=== PATIENT | female | born 2000 | race Two or more races ===

== ENCOUNTER 2024-01-03 09:36 | Outpatient (CLI) | payer OTHER | END 2024-01-03 09:37 | disposition home or self-care (01) | LOC: PRENATAL 09:36 | PROVIDERS: ATTEND Obstetrics & Gynecology Maternal & Fetal Medicine | DX: O35.3XX0 Maternal care for (suspected) damage to fetus from viral disease in mother, not applicable or unspecified (principal); O44.02 Complete placenta previa NOS or without hemorrhage, second trimester; O35.9XX0 Maternal care for (suspected) fetal abnormality and damage, unspecified, not applicable or unspecified; O26.872 Cervical shortening, second trimester; Z3A.23 23 weeks gestation of pregnancy ==

== ENCOUNTER 2024-03-07 09:37 | Outpatient (CLI) | payer OTHER | END 2024-03-07 09:38 | disposition home or self-care (01) | LOC: PRENATAL 09:37 | PROVIDERS: ATTEND Obstetrics & Gynecology Maternal & Fetal Medicine | DX: O26.849 Uterine size-date discrepancy, unspecified trimester (principal); O36.8199 Decreased fetal movements, unspecified trimester, other fetus; O99.019 Anemia complicating pregnancy, unspecified trimester; O26.859 Spotting complicating pregnancy, unspecified trimester; Z3A.32 32 weeks gestation of pregnancy ==

== ENCOUNTER 2024-03-12 19:29 | Inpatient (IN) | payer OTHER ==
[~2024-03-12] VITALS: Ht 167.6 cm; Wt 64.0 kg
[2024-03-12 19:15] VITALS: BP 109/70
[2024-03-12] MEDS ORDERED: PRENATAL + DHA1 EAC1 PO (19:38)
[2024-03-12] MEDS ORDERED: IRON PO (19:38)
[2024-03-12] MEDS ORDERED: BETAMETHASONE ACETATE,SOD PHOS 30 MG/5 ML ML IM ONE (19:45)
[2024-03-12] MEDS ORDERED: RINGERS SOLUTION,LACTATED 1,000 ML IV SCH (19:45)
[2024-03-12] MEDS ORDERED: AMPICILLIN SODIUM 2,000 MG VIAL IV SCH (20:00)
[2024-03-12 20:17] LABS: HEMOGLOBIN 10.7 g/dL (12.0-15.00); MEAN CELL VOLUME 89.1 fL (80.00-100.00); MEAN CORPUSCULAR HEMOGLOBIN 30.9 pg (27.00-32.0); MEAN CORPUSCULAR HGB CONC 34.6 g/dl (32.0-36.0); PLATELET COUNT 221 K/uL (150-450); RED BLOOD COUNT 3.48 M/uL (4.00-6.00); RED CELL DISTRIBUTION WIDTH 13.6 % (11.5-14.5)
[2024-03-12 20:21] LABS: URINE APPEARANCE Turbid; URINE BACTERIA 292.3 uL (0.0-1933); URINE BILIRRUBIN Negative (NEGATIVE); URINE BLOOD Negative; URINE COLOR Dark Yellow; URINE EPITHELIAL CELLS 22.8 uL (0.0-38.8); URINE GLUCOSE Negative (NEGATIVE); URINE KETONE 15 (NEGATIVE); URINE LEUKOCYTE Small; URINE NITRATE Negative; URINE PROTEIN 30 (NEGATIVE); URINE RBC 10.8 uL (0.0-20.8); URINE WBC 48.8 uL (0.0-23.2)
[2024-03-12 20:41] LABS: URINE CRYSTALS MANY /HPF
[2024-03-12 20:42] LABS: BILIRUBIN TOTAL 0.38 mg/dL (0.3-1.2); CREATININE SERUM 0.5 mg/dL (0.55-1.02); GFR 155.75; GLOBULINA 3.6 G/DL (2.4-3.5); POTASSIUM 3.83 mEq/L (3.5-5.1); TOTAL PROTEIN 6.6 gm/dL (6.4-8.2)
[2024-03-12 20:45] LABS: URINE MUCUS MODERATE
[2024-03-12] MEDS ORDERED: CEFTRIAXONE SODIUM 1,000 MG VIAL IV SCH (21:15)
[2024-03-12 23:17] VITALS: BP 100/58
[2024-03-13 02:47] VITALS: BP 95/56
[2024-03-13] MEDS ORDERED: NIFEDIPINE 30 MG TAB.SA.OSM PO SCH (05:00)
[2024-03-13 07:37] VITALS: BP 91/49
[2024-03-13] MEDS ORDERED: IRON/V.C/V.B12/FOLIC A/VIT. E 1 CAPL CAPLET PO SCH (09:00)
[2024-03-13] MEDS ORDERED: PNV,CALCIUM 72/IRON/FOLIC ACID 1 TAB TABLET PO SCH (09:00)
[2024-03-13 12:20] VITALS: BP 100/61
[2024-03-13 15:35] VITALS: BP 108/62
[2024-03-13] MEDS ORDERED: BETAMETHASONE ACETATE,SOD PHOS 30 MG/5 ML ML IM NR (20:00)
[2024-03-13 20:15] VITALS: BP 96/55
[2024-03-14] VITALS: BP 108/54; O2SAT 98
[2024-03-14 03:37] VITALS: BP 108/62; O2SAT 98
[2024-03-14 07:23] VITALS: BP 88/48
[2024-03-14 12:21] VITALS: BP 104/59
[2024-03-14 17:26] VITALS: BP 103/60
== END 2024-03-14 17:18 | disposition left against medical advice (07) | DRG 832 ==
LOC: LDR 19:29
PROVIDERS: ADMIT Obstetrics & Gynecology; ATTEND Obstetrics & Gynecology
PROC: 4A1HXCZ Monitoring of Products of Conception, Cardiac Rate, External Approach (ICD-10-PCS; principal; 2024-03-12)
DX: O60.03 Preterm labor without delivery, third trimester (principal); O23.43 Unspecified infection of urinary tract in pregnancy, third trimester; O99.013 Anemia complicating pregnancy, third trimester; D64.9 Anemia, unspecified; Z3A.33 33 weeks gestation of pregnancy; Z20.822 Contact with and (suspected) exposure to COVID-19; Z53.29 Procedure and treatment not carried out because of patient's decision for other reasons